=== PATIENT | female | born 1970 | race Caucasian/White ===

== ENCOUNTER 2024-08-11 12:13 | Emergency (ER) | payer OTHER, SELFPAY ==
--- NOTE | ~2024-08-11 | XR_ITS ---
EXAMINATION: XR toe 5th RT min 2V DATE: 08/11/2024 12:44 INDICATION: Bruising and swelling at the right fifth toe after kicking injury TECHNIQUE: Dorsal plantar, lateral and 2 oblique views of the right fifth were obtained. COMPARISON: None FINDINGS: Subtle nondisplaced oblique fracture at the distal metaphyseal region of the fifth proximal phalanx. The distal margin of the fracture is not clearly visualized but appears to approach the distal articu lar surface and could not exclude intra-articular extension. Alignment remains essentially anatomic. No other fractures identified. 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 IMPRESSION: Nondisplaced potentially intra-articular fracture at the distal neck of the right fifth proximal phal anx. Reviewed, dictated and finalized at location A. IMPRESSION: Nondisplaced potentially intra-articular fracture at the distal neck of the rig ht fifth proximal phalanx.
[2024-08-11 12:25] VITALS: BP 114/73; PULSE 73; RESP 16; TEMP 36.4; O2SAT 100
--- NOTE | 2024-08-11 12:30 | ED_ITS ---
HPI - Extremity Injury (Lower) General Chief Complaint: Extremity Injury, Lower Stated Complaint: Injured Toe Source: patient Mode of arrival: ambulatory Limitations: no limitations History of Present Illness HPI Narrative: 54 y/o female presented for c/o right little toe pain, bruising and swelling. Onset last night after kicking a fish tank. Has not taken anything for pain. Rates pain /10. Endorses hx osteoporosis. Related Data Home Medications ?Medication ?Instructions ?Recorded ?Confirmed ?Last Taken ?Type aspirin 08/11/24 Unknown History cetirizine 10 mg tablet mg 08/11/24 Unknown History denosumab 60 mg/mL subcutaneous mg subcut 08/11/24 Unknown History syringe (Prolia) evolocumab 140 mg/mL subcutaneous mg subcut 08/11/24 Unknown History pen injector (Repatha SureClick) famotidine 20 mg tablet mg 08/11/24 Unknown History ferrous sulfate 325 mg (65 mg mg 08/11/24 Unknown History iron) tablet (FeroSul) metformin 500 mg tablet mg 08/11/24 Unknown History metoprolol tartrate 25 mg tablet mg 08/11/24 Unknown History oxybutynin chloride 10 mg mg PO 08/11/24 Unknown History tablet,extended release 24 hr pantoprazole 40 mg tablet,delayed mg PO 08/11/24 Unknown History release pramipexole 0.5 mg tablet mg 08/11/24 Unknown History Allergies Allergy/AdvReac Type Severity Reaction Status Date / Time cephalexin (From Keflex) Allergy Intermediate Rash Verified 08/11/24 12:35 pravastatin Allergy Intermediate Rash Verified 08/11/24 12:35 rosuvastatin Allergy Intermediate Rash Verified 08/11/24 12:35 sulfamethoxazole (From Allergy Intermediate Rash Verified 08/11/24 12:35 Bactrim) trimethoprim (From Bactrim) Allergy Intermediate Rash Verified 08/11/24 12:35 Review of Systems Review of Systems: CONSTITUTIONAL: Denies body aches, fever, chills EYES: Denies visual changes ENT: Denies rhinorrhea, congestion CARDIOVASCULAR: Denies chest pain, palpitations, or edema. RESPIRATORY: Denies cough or dyspnea. SKIN: Denies rash, itching, or wounds. MUSCULOSKELETAL: reports right 5th toe pain NEUROLOGIC: Denies numbness, tingling, or weakness. All systems reviewed & are unremarkable except as noted in HPI and below PMFSH Comments At time of signature, I have reviewed and agree with nursing past medical, surgical, social and family history unless otherwise noted. Please see nursing chart for further information. There is no relevant family history pertinent to the presenting complaint Exam Narrative: GENERAL: Well-appearing, well-nourished, and in no acute distress. CHEST: Speaks in full sentences. No respiratory distress. HEART: Regular rate and rhythm. Normal and equal peripheral pulses. EXTREMITIES: Right foot has normal strength and sensation. Decreased range of motion of right 5th toe, and endorses pain with movement. Mild ecchymosis to MT P with point tenderness. No open wounds, or obvious deformity; alignment normal, pulse palpable and equal bilaterally, skin warm, dry, pink. Capillary refill less than 3 seconds. Bilateral feet with mild swelling. SKIN: Warm, dry, skin appears dry and flaky. NEURO: Alert and oriented x3. PSYCH: Normal mood and affect Course Course Emergency Course: Patient is aware of diagnosis, understands and agrees to treatment plan. Anticipatory guidance given. Patient agrees to follow-up as directed and is aware of reasons to seek care at the emergency department. Portions of this record may have been created with voice recognition software Level of Care: Express Care Visit Vital Signs Vital signs: Vital Signs Temperature 97.5 F L 08/11/24 12:25 Pulse Rate 73 08/11/24 12:25 Respiratory Rate 16 08/11/24 12:25 Blood Pressure 114/73 08/11/24 12:25 Pulse Oximetry 100 08/11/24 12:25 Temperature 97.5 F L 08/11/24 12:25 Pulse Rate 73 08/11/24 12:25 Respiratory Rate 16 08/11/24 12:25 Blood Pressure 114/73 08/11/24 12:25 Pulse Oximetry 100 08/11/24 12:25 Reviewed Procedures Orthopedic Splinting/Casting right 5th toe: Lower Extremity Immobilizer: post-op shoe MDM - Extremity Injury (Lower) MDM Narrative Medical decision making narrative: Discussed physical exam findings and xray. Post op shoe applied. Advised supportive measures and signs/symptoms to go to the ER. Pt is appropriate for outpt treatment and f/u. Differential Diagnosis Differential diagnosis: Likely fracture of toe and other (sprain, strain, dislocation) Imaging Data Radiologist's impression: Patient: Louie Kaylah Hartley : 1970 MR#: [id number] Age: 54 Acct:[id number] Loc: [facility] ADM Date: 08/11/24Attending Dr: Ordering Physician: Adelita Jacob APRN Date of Service: 08/11/24 Procedure(s): XR toe 5th RT min 2V Accession Number(s): [id number] cc: Adelita Jacob APRN; [facility] PHYSICIAN~ EXAMINATION: XR toe 5th RT min 2V DATE: 08/11/2024 12:44 INDICATION: Bruising and swelling at the right fifth toe after kicking injury TECHNIQUE: Dorsal plantar, lateral and 2 oblique views of the right fifth were obtained. COMPARISON: None FINDINGS: Subtle nondisplaced oblique fracture at the distal metaphyseal region of the fifth proximal phalanx. The distal margin of the fracture is not clearly visualized but appears to approach the distal articular surface and could not exclude intra-articular extension. Alignment remains essentially anatomic. No other fractures identified. 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 IMPRESSION: Nondisplaced potentially intra-articular fracture at the distal neck of the right fifth proximal phalanx. Discharge Plan Discharge Clinical Impression: Fracture of right toe Patient Disposition: Home Condition: Stable Instructions: Antibiotic Form, Toe Fracture (ED) Additional Instructions: Rest; no excessive walking, running or jumping. ice and elevate the right foot Motrin 600mg every 8 hours, as needed, for pain (take with food). Tylenol 1000mg every 8 hours. Keep postop shoe dry and in place when walking. Go to the ER immediately for increased pain, tingling/numbness, swelling, redness, etc Follow up with Orthopedic Surgery in 3 days for further evaluation - please call for an appointment. Patient Language: Swedish Prescriptions: No Action metformin 500 mg tablet cetirizine 10 mg tablet oxybutynin chloride 10 mg tablet extended release 24hr PO pramipexole 0.5 mg tablet famotidine 20 mg tablet pantoprazole 40 mg tablet,delayed release (DR/EC) PO ferrous sulfate [FeroSul] 325 mg (65 mg iron) tablet metoprolol tartrate 25 mg tablet Prolia 60 mg/mL syringe SUBCUT Repatha SureClick 140 mg/mL pen injector SUBCUT aspirin Follow-up/Referrals: PHYSICIAN,[facility] [Primary Care Provider] - Louie Daugherty MD [Physician] - (Nondisplaced potentially intra-articular fracture at the distal neck of the right fifth proximal phalanx.) Time of Disposition: 13:22
== END 2024-08-11 13:24 | disposition home or self-care (01) ==
PROVIDERS: Emergency Provider Nurse Practitioner Family
DX: S92.514A Nondisplaced fracture of proximal phalanx of right lesser toe(s), initial encounter for closed fracture (principal); W22.8XXA Striking against or struck by other objects, initial encounter; I10 Essential (primary) hypertension; E78.00 Pure hypercholesterolemia, unspecified; K21.9 Gastro-esophageal reflux disease without esophagitis; K76.0 Fatty (change of) liver, not elsewhere classified; M79.7 Fibromyalgia; M27.2 Inflammatory conditions of jaws
CPT/HCPCS: 73660; 99204; G0463